=== PATIENT | female | born 1930 | race Caucasian/White ===

== ENCOUNTER 2016-11-01 21:12 | Inpatient (IN) ==
[2016-11-01] MEDS ORDERED: NS 1,000 ML IV ONE (22:17)
[2016-11-01] MEDS ORDERED: SALINE FLUSH 10ml SYRINGE IVF PRN (22:17)
[2016-11-01] MEDS ORDERED: CEFEPIME 1 GM in NS 100 ML IV ONE (22:17)
--- NOTE | 2016-11-01 22:27 | Emergency Department Report ---
General Adult HPI - General Chief complaint: Fever Stated complaint: fast heart rate Time Seen by Provider: 11/01/16 22:17 - History of Present Illness HPI narrative: 86-year-old female presents with fever. Patient has history of Alzheimer's, normally can feed herself and do some self care activities, has not been able to the last 2 days. She was admitted October 11 to [facility] with UTI/urosepsis. She was discharged home and antibiotics were stopped apparently. Patient is cared for by family, has become less responsive over the last 2 days. She previously had issues with dehydration. - Related Data Home Medications Medication Instructions Recorded Confirmed Lisinopril 40 mg PO DAILY #0 11/04/11 11/01/16 Atorvastatin Calcium 10 mg PO DAILY #0 01/18/16 11/01/16 Memantine HCl [Memantine HCl] 10 mg PO DAILY 09/26/16 11/01/16 Allergies Allergy/AdvReac Type Severity Reaction Status Date / Time No Known Allergies Allergy Verified 11/01/16 23:28 Review of Systems All systems: reviewed and negative except as stated (with family) Limitations: ROS unobtainable due to patient's medical condition PFSH Patient Stated Medical History Alzheimer's Disease Yes Dementia Yes Other HEENT Yes: WEARS GLASSES Congestive Heart Failure Yes Hypertension Yes Pneumonia Yes: hx of Hx Incontinence Yes Hx Urinary Tract Infection Yes Osteoarthritis Yes Depression Yes Surgical History: Unknown Family History: Unknown - Social History Smoking status: Never smoker Substance use type: does not use Physical Exam - Limitations Limitations: altered mental status - General General appearance: lethargic - Normal Exams: Head:: Normocephalic without trauma Chest/Respirations:: Clear all mi, with good airflow, and symmetry bilaterally Cardiovascular:: Regular rate and rhythm (patient is tachycardic), without murmur or gallop, Pulses 2+ all extremities, capillary refill, <2 seconds all extremities Abdomen:: Bowel sounds positive, soft, non-tender, non-distended, no hepatosplenomegaly, masses or bruits noted Course Vital Signs Temperature 101.3 F H 11/01/16 21:25 Pulse Rate 120 H 11/01/16 21:25 Respiratory Rate 12 11/01/16 21:25 Blood Pressure 174/80 H 11/01/16 21:25 Pulse Oximetry 97 11/01/16 21:25 Temperature 99.4 F 11/01/16 23:38 Pulse Rate 113 H 11/01/16 22:45 Respiratory Rate 25 H 11/01/16 22:45 Blood Pressure 199/85 H 11/01/16 22:45 Pulse Oximetry 97 11/01/16 22:45 Medical Decision Making - MDM Narrative Medical decision making narrative: White count slightly elevated with left shift, patient is elevated CRP with lactate of 1.6. Urine shows obvious UTI with white cells too numerous to count. Sepsis protocol was started cefepime was ordered and IV fluid supplemented. She has not require 30 mL/kg bolus as blood pressure is reasonable and she is stable at this time. She does require indwelling Escalera catheter due to incontinence and needs to track fluid status including in and out with sepsis. Patient is admitted to hospitalist service, this is reviewed with hospitalist economic development coordinator sanjuanita who accepted the patient. - Lab Data Result diagrams: 11/01/16 22:28 11/01/16 22:28 Lab Results 11/01/16 11/01/16 11/01/16 Range/Units 22:15 22:28 22:28 WBC 12.0 H (4.5-11.0) T/MM3 RBC 4.01 (4.00-5.20) M/MM3 Hgb 11.3 L (12-16) GM/DL Hct 34.9 L (36-46) % MCV 87.0 (80-100) UM3 MCH 28.2 (26-34) UUG MCHC 32.4 (31-37) GM/DL RDW Std Deviation 50.7 H (36.9-50.2) FL Plt Count 239 (130-400) T/MM3 MPV 9.9 (9.4-12.4) UM3 Immature Gran % (Auto) Not performed Neut % (Auto) Not performed Lymph % (Auto) Not performed [place] % (Auto) Not performed Eos % (Auto) Not performed Baso % (Auto) Not performed Neut # Not performed Lymph # Not performed [place] # Not performed Eos # Not performed Baso # Not performed Abs Immat Gran (auto) Not performed Neutrophils % (Manual) 82.0 H (33-66) % Band Neutrophils % 7.0 H D (0-6) % Lymphocytes % (Manual) 8.0 L (23-45) % Monocytes % (Manual) 3.0 (0-9.0) % Neutrophils # (Manual) 9.8 H (1.8-7.7) T/MM3 Band Neutrophils # 0.8 T/MM3 Lymphocytes # (Manual) 1.0 (1-4.8) T/MM3 Monocytes # (Manual) 0.4 (0-0.8) T/MM3 RBC Morph Comment Normal Turbidity < 20 (0-20) Sodium 141 (134-144) MEQ/L Potassium 3.7 (3.6-5) MEQ/L Chloride 103 (98-107) MEQ/L Carbon Dioxide 27 (22-30) MEQ/L Anion Gap 11 (5-15) MEQ/L BUN 26.0 H (7-17) MG/DL Creatinine 1.0 (0.7-1.2) MG/DL GFR Calculation 53 BUN/Creatinine Ratio 26 (6-26) RATIO Glucose 136 H (65-110) MG/DL Calculated Osmolality 278 (261-280) MOSM/KG Calcium 9.1 (8.4-10.2) MG/DL Total Bilirubin 0.70 (0.20-1.30) MG/DL Icterus Index < 2 (0-7) AST 22 (14-36) U/L ALT 31 (9-52) U/L Alkaline Phosphatase 88 (38-126) U/L C-Reactive Protein 168.2 H (0-9) MG/L Total Protein 6.9 (6.3-8.2) G/DL Albumin 4.0 (3.5-5.0) G/DL Globulin 2.9 (2.4-3.6) G/DL Albumin/Globulin Ratio 1.4 (1.1-2.2) RATIO Lipase 86 (23-300) U/L Plasma Lactate 1.6 (0.6-2.2) MMOL/L Procalcitonin NG/ML Specimen Hemolysis < 15 (0-25) Ur Collection Type Urine, catheter Urine Color Yellow (YELLOW) Urine Clarity Cloudy Urine pH 5.5 (5.0-8.0) Ur Specific [place] 1.025 (1.015-1.025) Urine Protein 2+ A (NEGATIVE) Urine Glucose (UA) Negative (NEGATIVE) Urine Ketones Negative (NEGATIVE) Urine Occult Blood 3+ A (NEGATIVE) Urine Nitrate Positive A (NEGATIVE) Urine Bilirubin Negative (NEGATIVE) Urine Urobilinogen 0.2 (NORMAL) EU/DL Ur Leukocyte Esterase 3+ A (NEGATIVE) Urine RBC 1-3 (0-3) /HPF Urine WBC Tntc (0-5) /HPF Ur Squamous Epith Cells 0-5 Urine Bacteria 4+ H (NEGATIVE) Hyaline Casts 0-1 /LPF Ur Culture Indicated? Cult reflexed &setup 11/01/16 Range/Units 22:28 WBC (4.5-11.0) T/MM3 RBC (4.00-5.20) M/MM3 Hgb (12-16) GM/DL Hct (36-46) % MCV (80-100) UM3 MCH (26-34) UUG MCHC (31-37) GM/DL RDW Std Deviation (36.9-50.2) FL Plt Count (130-400) T/MM3 MPV (9.4-12.4) UM3 Immature Gran % (Auto) Neut % (Auto) Lymph % (Auto) [place] % (Auto) Eos % (Auto) Baso % (Auto) Neut # Lymph # [place] # Eos # Baso # Abs Immat Gran (auto) Neutrophils % (Manual) (33-66) % Band Neutrophils % (0-6) % Lymphocytes % (Manual) (23-45) % Monocytes % (Manual) (0-9.0) % Neutrophils # (Manual) (1.8-7.7) T/MM3 Band Neutrophils # T/MM3 Lymphocytes # (Manual) (1-4.8) T/MM3 Monocytes # (Manual) (0-0.8) T/MM3 RBC Morph Comment Turbidity (0-20) Sodium (134-144) MEQ/L Potassium (3.6-5) MEQ/L Chloride (98-107) MEQ/L Carbon Dioxide (22-30) MEQ/L Anion Gap (5-15) MEQ/L BUN (7-17) MG/DL Creatinine (0.7-1.2) MG/DL GFR Calculation BUN/Creatinine Ratio (6-26) RATIO Glucose (65-110) MG/DL Calculated Osmolality (261-280) MOSM/KG Calcium (8.4-10.2) MG/DL Total Bilirubin (0.20-1.30) MG/DL Icterus Index (0-7) AST (14-36) U/L ALT (9-52) U/L Alkaline Phosphatase (38-126) U/L C-Reactive Protein (0-9) MG/L Total Protein (6.3-8.2) G/DL Albumin (3.5-5.0) G/DL Globulin (2.4-3.6) G/DL Albumin/Globulin Ratio (1.1-2.2) RATIO Lipase (23-300) U/L Plasma Lactate (0.6-2.2) MMOL/L Procalcitonin 0.44 NG/ML Specimen Hemolysis (0-25) Ur Collection Type Urine Color (YELLOW) Urine Clarity Urine pH (5.0-8.0) Ur Specific [place] (1.015-1.025) Urine Protein (NEGATIVE) Urine Glucose (UA) (NEGATIVE) Urine Ketones (NEGATIVE) Urine Occult Blood (NEGATIVE) Urine Nitrate (NEGATIVE) Urine Bilirubin (NEGATIVE) Urine Urobilinogen (NORMAL) EU/DL Ur Leukocyte Esterase (NEGATIVE) Urine RBC (0-3) /HPF Urine WBC (0-5) /HPF Ur Squamous Epith Cells Urine Bacteria (NEGATIVE) Hyaline Casts /LPF Ur Culture Indicated? Disposition Clinical Impression: Sepsis, Pyelonephritis Disposition: 02 [place] [facility] [place] Condition: Stable Prescriptions: No Action Lisinopril 40 mg PO DAILY #0 Memantine HCl [Memantine HCl] 10 mg PO DAILY Atorvastatin Calcium 10 mg PO DAILY #0 Time of Disposition: 23:47 - Seen By: physician
[2016-11-01] MEDS ORDERED: NS 1,000 ML IV SCH (23:45)
[2016-11-02] MEDS ORDERED: ONDANSETRON 4 MG/2 ML INJECTION IVP PRN (00:12)
[2016-11-02] MEDS ORDERED: ACETAMINOPHEN 325 MG TABLET PO PRN (00:12)
[2016-11-02] MEDS ORDERED: DOCUSATE SODIUM 100 MG CAPSULE PO PRN (00:12)
[2016-11-02] MEDS ORDERED: CEFTRIAXONE 1 G INJECTION IM SCH (00:46)
[2016-11-02 01:28] VITALS: BMI 18.6
[2016-11-02] MEDS: NS 1,000 ML IV SCH ×3 (01:35→19:56)
[2016-11-02] MEDS ORDERED: CEFTRIAXONE 1 G INJECTION IV SCH (01:52)
[2016-11-02] MEDS ORDERED: CEFTRIAXONE 1 G in NS 100 ML IV SCH (02:15)
--- NOTE | 2016-11-02 03:14 | History & Physical Report ---
History of Present Illness Date: 11/02/16 Chief complaint: Confusion, fevers HPI: 86 yo who lives with family who has been more unresponsive over the past 2-3 days. She was treated at [facility] on 10/11/16 due to sepsis and UTI, but did not continue abx at home. Family, who are not present on admission stated to ER physician that she has not been eating or drinking much over the past week. 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 Review of Systems ROS unobtainable: due to mental status PFSH HTN, CHF, recurrent pneumonia. Alzhemiers, Surgical History: Unknown Family History: noncontributory due to advanced age - Social History Smoking status: Never smoker Alcohol intake: never Household members: family Medications Home Medications Medication Instructions Recorded Confirmed Type Lisinopril 40 mg PO DAILY #0 11/04/11 11/01/16 History Atorvastatin Calcium 10 mg PO DAILY #0 01/18/16 11/01/16 History Memantine HCl [Memantine HCl] 10 mg PO DAILY 09/26/16 11/01/16 History Allergies Allergy/AdvReac Type Severity Reaction Status Date / Time No Known Allergies Allergy Verified 11/01/16 23:28 Exam Vital Signs: Temperature 99.4 F 11/01/16 23:38 Pulse Rate 109 H 11/02/16 00:15 Respiratory Rate 21 11/02/16 00:15 Blood Pressure 167/76 H 11/02/16 00:15 Pulse Oximetry 94 11/02/16 00:15 Height: 1.57 m Weight: 46.1 kg Body Mass Index: 18.6 - Constitutional Present: no acute distress - Routine Respiratory Exam Present: CTA bilaterally - Routine Cardiovascular Exam Present: RRR, no murmur Results - Labs CBC & Chem 7: 11/02/16 03:02 11/01/16 22:28 Assessment and Plan (1) UTI (urinary tract infection) Current visit: Yes Status: Acute (2) Sepsis Current visit: Yes Status: Acute DVT Prophylaxis: SCD's Resuscitation Status: Full Code Assessment and Plan: start pt on rocephin, IVF, cultures pending. Sepsis Assessment - Evaluation Possible source: genitourinary SIRS Criteria: acute mental status change, temperature > or equal to 100.4, pulse > or equal to 90 beats/minute, WBC > or equal to 12,000 Hospital Course Summary Disclaimer: The visit summary below is not to be considered part of the above Progress Note.
--- NOTE | 2016-11-02 07:56 | XRay Report ---
Indication: febrile, mental status change PROCEDURE: XR chest 1V: Encounter: Initial Comparison: September 26, 2016 Findings: The lungs are stable in appearance without new focal airspace consolidation. Calcified granuloma on the right. There is no pleural effusion or pneumothorax. The heart size, pulmonary vascularity and mediastinal contours are unchanged. IMPRESSION: Stable appearance of the chest without acute cardiopulmonary disease. .
[2016-11-02] MEDS: MEMANTINE 10 MG TABLET PO SCH (16:32)
[2016-11-02] MEDS: LISINOPRIL 40 MG TABLET PO SCH (16:32)
[2016-11-02] MEDS: CEFTRIAXONE 1 G in NS 100 ML IV SCH (19:55)
[2016-11-02] MEDS: ATORVASTATIN 10 MG TABLET PO SCH (22:30)
[2016-11-03] MEDS: NS 1,000 ML IV SCH ×2 (06:12→15:53)
[2016-11-03] MEDS: LISINOPRIL 40 MG TABLET PO SCH (08:05)
[2016-11-03] MEDS: MEMANTINE 10 MG TABLET PO SCH (08:06)
--- NOTE | 2016-11-03 09:19 | Progress Note ---
Subjective: Much more awake and alert this morning. No events overnight. Daughter at bedside. States that she has had increasing difficulty swallowing recently. Occasionally coughs when eating. Objective Vital signs: Temperature 96.5 F L 11/03/16 07:32 Pulse Rate 87 11/03/16 07:40 Respiratory Rate 18 11/03/16 07:32 Blood Pressure 169/80 H 11/03/16 07:32 Pulse Oximetry 94 11/03/16 07:32 Oxygen Delivery Method Room Air Gen.-awake and alert, in no acute respiratory distress HEENT-PERRLA EOMI Neck-supple no JVD no bruits Cardiovascular-regular rate and rhythm Lungs-ctab Abdomen-benign Extremities-no edema cyanosis or clubbing Neurological-nonfocal Skin-WDI Weight: 51.2 kg Results - Labs CBC & Chem 7: 11/03/16 04:31 11/03/16 04:31 Assessment and Plan (1) Sepsis Current visit: Yes Status: Acute Much improved. Secondary to Escherichia coli urinary tract infection. Blood cultures pending. Continue Rocephin and IV fluids. Daughter is concerned about volume overload. At this time there appears to be no evidence of volume overload. (2) UTI (urinary tract infection) Current visit: Yes Status: Acute Pansensitive Escherichia coli. Continue Rocephin. (3) Dysphagia Current visit: Yes Status: Acute Consult speech therapy. (4) Dementia Current visit: Yes Status: Chronic At baseline. (5) Asthenia Current visit: Yes Status: Acute We'll consult physical therapy. Assessment and Plan: start pt on rocephin, IVF, cultures pending. Sepsis Assessment - Evaluation Sepsis screening result: No Definite Risk Hospital Course Summary Disclaimer: The visit summary below is not to be considered part of the above Progress Note.
[2016-11-03] MEDS: CEFTRIAXONE 1 G in NS 100 ML IV SCH (20:45)
[2016-11-03] MEDS: ATORVASTATIN 10 MG TABLET PO SCH (21:06)
[2016-11-04] MEDS: NS 1,000 ML IV SCH ×2 (02:37→13:25)
[2016-11-04] MEDS: LISINOPRIL 40 MG TABLET PO SCH (08:52)
[2016-11-04] MEDS: MEMANTINE 10 MG TABLET PO SCH (08:52)
[2016-11-04] MEDS: LIDOCAINE 1% 2ml INJ 10 MG, POTASSIUM CHLORIDE INJ 10 MEQ in NS 100 ML IV SCH ×4 (12:20→15:53)
--- NOTE | 2016-11-04 20:37 | Progress Note ---
Subjective: Mrs. Franks was seen with a caregiver/son at the bedside. She reports that she hurts everywhere but was unsure if she was short of breath or nauseated. Her caregiver reported that she is speaking less than usual and that she is usually ambulatory with a walker. Caregiver reports patient takes crushed medications at home and that liquids are not thickened. Objective Vital signs: Temperature 98.3 F 11/04/16 20:00 Pulse Rate 88 11/04/16 20:00 Respiratory Rate 20 11/04/16 20:00 Blood Pressure 170/77 H 11/04/16 20:00 Pulse Oximetry 98 11/04/16 20:00 Oxygen Delivery Method Room Air EXAM General-drowsy, minimal speech although occasionally answers questions with one or 2 words HEENT-conjunctiva clear, conjugate gaze, refuses oral exam, minor right ptosis Lungs-respirations nonlabored, diminished airflow throughout, breath sounds clear Cardiac-regular rhythm Abd-soft, nontender, bowel sounds present Ext-without edema Neuro-diffusely weak, requires assistance to sit up Psych-dull, limited interaction - Weight: 52.8 kg Results - Labs CBC & Chem 7: 11/03/16 04:31 11/04/16 10:24 Microbiology Results: Blood cultures 2 negative after 48 hours Urine culture from admission positive for greater than 100,000 colonies pansensitive Escherichia coli - Imaging and Cardiology Chest x-ray Status: image reviewed by me (NAD) Assessment and Plan (1) Sepsis Current visit: Yes Status: Acute (2) UTI (urinary tract infection) Problem details: pansensitive E. Coli Current visit: Yes Status: Acute (3) Dysphagia Current visit: Yes Status: Acute (4) Dementia Current visit: Yes Status: Chronic DVT Prophylaxis: SCD's Resuscitation Status: Do Not Resuscitate Assessment and Plan: E. Coli UTI with sepsis Hypokalemia Dementia Dysphasia Arthritis Hypertension Anemia Debility Patient is been afebrile for 48 hours and leukocytosis is resolved. Convert to oral antibiotics-cephalexin, reassess laboratory data in a.m. Progressive hypokalemia-supplemented IV/orally today. Discontinue IV fluids, oral intake fair-approximately 850 mL oral intake reported each of the past 2 days. Anticipate discharge in the next 1-2 days provided potassium stabilized and swallow evaluation does not require further interventions. Family members provide care at home and intend to continue doing so at discharge. Supplemental history provided by family and nursing, admission chest x-ray reviewed by myself, laboratory data reviewed, recent records from [facility] reviewed. Sepsis Assessment - Evaluation Sepsis screening result: No Definite Risk Hospital Course Summary Disclaimer: The visit summary below is not to be considered part of the above Progress Note. Hospital Course: 11/04/16 20:57 Patient is been afebrile for 48 hours and leukocytosis is resolved. Convert to oral antibiotics-cephalexin, reassess laboratory data in a.m. Progressive hypokalemia-supplemented IV/orally today. Discontinue IV fluids, oral intake fair-approximately 850 mL oral intake reported each of the past 2 days. Anticipate discharge in the next 1-2 days provided potassium stabilized and swallow evaluation does not require further interventions. Family members provide care at home and intend to continue doing so at discharge.
[2016-11-04] MEDS: ATORVASTATIN 10 MG TABLET PO SCH ×2 (20:38→22:36)
[2016-11-04] MEDS: CEFTRIAXONE 1 G in NS 100 ML IV SCH (20:42)
[2016-11-05 07:36] VITALS: RESP 16
[2016-11-05] MEDS: LISINOPRIL 40 MG TABLET PO SCH (09:44)
[2016-11-05] MEDS: MEMANTINE 10 MG TABLET PO SCH (09:44)
[2016-11-05 12:18] VITALS: BP 139/67; PULSE 85; TEMP 96; O2SAT 96
--- NOTE | 2016-11-05 14:04 | Discharge Instructions ---
Discharge Plan - Med Rec/Dispo Referrals/Follow Up: Judy Ferrera DO [Family Provider] - (Please follow up with Dr Ferrera in 1 week. Will need recheck UA at that time) Quinn Instructions: Urinary Tract Infection in Women (GEN), Hypokalemia (DC), Hypokalemia (GEN) Prescriptions: New CephALEXin [Keflex] 500 mg PO TID #9 capsule Docusate Sodium [Colace] 100 mg PO BID PRN capsule Acetaminophen [Tylenol] 325 - 650 mg PO Q5H PRN tablet PRN Reason: Discomfort Continue Lisinopril 40 mg PO DAILY #0 Memantine HCl 10 mg PO DAILY Atorvastatin Calcium 10 mg PO DAILY #0 Discharge Instructions/Outpatient Orders: Final Provider Discharge Instructions Location: Determined By Patient - Disposition 01 Discharged Home, Self-Care
--- NOTE | 2016-11-05 15:31 | Discharge Summary ---
<Tara Leone V - Last Filed: 11/05/16 15:23> Discharge Information Date of admission: 11/02/16 00:21 Anticipated date of discharge: 11/05/16 Attending Physician: Maribell Ray MD Primary care physician: Judy Ferrera DO Consults: None - Discharge Diagnosis (1) Sepsis Qualifiers: Sepsis type: Escherichia coli Qualified Code(s): A41.51 - Sepsis due to Escherichia coli [E. coli] Status: Acute (2) UTI (urinary tract infection) Qualifiers: Urinary tract infection type: site unspecified Hematuria presence: without hematuria Qualified Code(s): N39.0 - Urinary tract infection, site not specified Problem Details: pansensitive E. Coli Status: Acute (3) Dysphagia Qualifiers: Dysphagia type: oropharyngeal phase Qualified Code(s): R13.12 - Dysphagia, oropharyngeal phase Status: Acute (4) Dementia Qualifiers: Dementia type: unspecified type Status: Chronic - Procedures Procedures: None - Laboratory Labs: 11/05/16 04:48 11/05/16 04:48 - Microbiology Microbiology 11/01/16 22:28 Blood Culture - Preliminary Peripheral/Iv Start No Growth After 3 Days 11/01/16 22:31 Blood Culture - Preliminary Peripheral/Iv Start No Growth After 3 Days Microbiology 11/01/16 22:28 Peripheral/Iv Start Blood Culture - Preliminary No Growth After 3 Days 11/01/16 22:31 Peripheral/Iv Start Blood Culture - Preliminary No Growth After 3 Days 11/01/16 22:15 Urine, Cath Straight Urine Culture - Final Escherichia coli - Radiology Radiology: 11/01/16-chest x-ray- revealing no acute cardiopulmonary findings - Pathology None History of Present Illness HPI: 86 yo who lives with family who has been more unresponsive over the past 2-3 days. She was treated at [facility] on 10/11/16 due to sepsis and UTI, but did not continue abx at home. Family, who are not present on admission stated to ER physician that she has not been eating or drinking much over the past week. 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 Objective Vital signs: Temperature 96.0 F L 11/05/16 11:00 Pulse Rate 85 11/05/16 11:00 Respiratory Rate 16 11/05/16 11:00 Blood Pressure 139/67 11/05/16 11:00 Pulse Oximetry 96 11/05/16 11:00 Oxygen Delivery Method Room Air Weight: 52.6 kg - Constitutional Present: no acute distress, well nourished, well developed - Routine HEENT Exam Eye: Present: EOMI ENT: Present: mucous membranes moist, dentition normal - Routine Respiratory Exam Present: CTA bilaterally. Absent: wheezes - Routine Cardiovascular Exam Present: RRR. Absent: murmur - Routine Abdominal Exam Present: soft, normoactive bowel sounds, non distended. Absent: tenderness - Routine Extremities Exam Present: normal capillary refill - Routine Skin Exam Present: dry, warm - Routine Neurological Exam Present: alert, CN II-XII intact, moving all extremities - Routine Lymphatic Exam Lymphatic: Absent: adenopathy - Routine Psychiatric Exam Present: normal affect Hospital Course This is a general summary of the patient's hospital course. For more details refer to the complete medical record. Hospital course: 11/04/16 20:57 Patient is been afebrile for 48 hours and leukocytosis is resolved. Convert to oral antibiotics-cephalexin, reassess laboratory data in a.m. Progressive hypokalemia-supplemented IV/orally today. Discontinue IV fluids, oral intake fair-approximately 850 mL oral intake reported each of the past 2 days. Anticipate discharge in the next 1-2 days provided potassium stabilized and swallow evaluation does not require further interventions. Family members provide care at home and intend to continue doing so at discharge. 11/05/16- Discharge Chilango is seen and examined today while her daughter is at her side. She is alert during examination, breathing comfortably on room air without any evidence of distress. She makes good eye Contact, however, is minimally verbally responsive. Daughter does note the "challenges" with communication and dementia. Overall, she has been feeling better. Laboratory studies have continued to improve. Urine microbiology was positive for Escherichia coli on . Patient has completed a five-day course of antibiotics, we will continue with 3 additional days to complete this course. She was switched to oral Keflex yesterday. She was hypokalemic during her hospitalization and potassium did drop down to 2.9, however, it normalized on day of discharge. Sepsis markers were negative. However, on admission. CRP was found to be significantly elevated at 168, exact etiology is unknown. Plan of care discussed with patient's daughter at the bedside. Patient is discharged in stable condition under the care of her daughter and will return home with her. She is instructed to follow up with her primary care provider, Dr. Ferrera at [facility] in the next 1 week. Upon completion of course of Keflex a repeat urinalysis likely straight catheter should be obtained. Will discharge time greater than 35 minutes Time spent with patient: greater than 35 minutes Discharge Plan - Med Rec/Dispo Referrals/Follow Up: Judy Ferrera DO [Family Provider] - (Please follow up with Dr Ferrera in 1 week. Will need recheck UA at that time) Quinn Instructions: Urinary Tract Infection in Women (GEN), Hypokalemia (DC), Hypokalemia (GEN) Prescriptions: New CephALEXin [Keflex] 500 mg PO TID #9 capsule Docusate Sodium [Colace] 100 mg PO BID PRN capsule Acetaminophen [Tylenol] 325 - 650 mg PO Q5H PRN tablet PRN Reason: Discomfort Continue Lisinopril 40 mg PO DAILY #0 Memantine HCl 10 mg PO DAILY Atorvastatin Calcium 10 mg PO DAILY #0 Discharge Instructions/Outpatient Orders: Final Provider Discharge Instructions Location: Determined By Patient - Disposition 01 Discharged Home, Self-Care <Maribell Ray - Last Filed: 11/05/16 17:23> Discharge Information Date of admission: 11/02/16 00:21 Attending Physician: Maribell Ray MD Primary care physician: Judy Ferrera DO - Discharge Diagnosis (1) Sepsis Qualifiers: Sepsis type: Escherichia coli Qualified Code(s): A41.51 - Sepsis due to Escherichia coli [E. coli] Status: Acute (2) UTI (urinary tract infection) Qualifiers: Urinary tract infection type: site unspecified Hematuria presence: without hematuria Qualified Code(s): N39.0 - Urinary tract infection, site not specified Problem Details: pansensitive E. Coli Status: Acute (3) Dysphagia Qualifiers: Dysphagia type: oropharyngeal phase Qualified Code(s): R13.12 - Dysphagia, oropharyngeal phase Status: Acute (4) Dementia Qualifiers: Dementia type: unspecified type Status: Chronic - Laboratory Labs: 11/05/16 04:48 11/05/16 04:48 Objective Vital signs: Temperature 96.0 F L 11/05/16 11:00 Pulse Rate 85 11/05/16 11:00 Respiratory Rate 16 11/05/16 11:00 Blood Pressure 139/67 11/05/16 11:00 Pulse Oximetry 96 11/05/16 11:00 Oxygen Delivery Method Room Air Hospital Course This is a general summary of the patient's hospital course. For more details refer to the complete medical record. Hospital course: I have independently evaluated and examined this patient. I reviewed the chart, the patient's history, and the [employer]/PA's documented findings as above. We discussed and formulated the assessment and plan as above with additions as below: Mrs. Franks was much more alert today and sitting up in a chair. She was minimally verbal however. The daughter indicated that this is essentially baseline. The patient had a soft, nontender abdomen and respirations were nonlabored with decreased breath sounds throughout. She remains afebrile and white count is 6.4 today. Blood cultures are negative after 3 days. She is clinically stable for discharge on oral antibiotics. Daughter is asked to have patient reevaluated several days after antibiotics are completed to have repeat urine evaluated at that time.
== END 2016-11-05 15:30 | disposition home health service (06) | DRG 872 ==
LOC: ED 21:12 → MED 11-02 00:21
PROVIDERS: ADMIT Internal Medicine; ATTEND Internal Medicine